=== PATIENT | male | born 1960 | race Hispanic/Latino ===

== ENCOUNTER 2020-11-16 08:35 | Inpatient (IN) | payer BC ==
[2020-11-16 12:44] LABS: #Basophils 0.1 thou/uL (0.0-0.2); #Eosinphils 0.3 thou/uL (0.0-0.7); #Lymphocytes 1.7 thou/uL (1.20-3.40); #Monocytes 0.4 thou/uL (0.11-0.59); #Neutrophils 4.3 thou/uL (1.40-6.50); %Basophils 0.9 % (0.0-1.0); %Lymphocytes 24.7 % (21.0-51.0); %Monocytes 6.1 % (0.0-10.0); %Neutrophils 63.4 % (42.0-75.0); Hemoglobin 9.6 g/dL (14.0-18.0); Mean Corpuscular HGB CONC 33.1 g/dL (32.0-36.0); Mean Corpuscular Hemoglobin 28.2 pg (27.0-31.0); Mean Corpuscular Volume 85.2 fL (78.0-98.0); Mean Platelet Volume 8.5 fL (7.4-10.4); Platelet Count 214 thou/uL (130-400); RBC Distribution Width 12.3 % (11.5-14.5); Red Blood Cell (RBC) Count 3.41 mill/uL (4.70-6.10); White Blood Cell (WBC) Count 6.8 thou/uL (4.8-10.8)
[2020-11-16 13:15] LABS: ALT (SGPT) 9 U/L (8-55); AST (SGOT) 11 U/L (5-34); Albumin 3.3 g/dL (3.5-5.0); Anion Gap 15 mmol/L (10-20); BUN (Urea Nitrogen) 81 mg/dL (8.4-25.7); Bilirubin, Total 0.4 mg/dL (0.2-1.2); Calc. Creatinine Clearance 0 mL/min (70-130); Calcium 7.5 mg/dL (7.8-10.44); Carbon Dioxide 18 mmol/L (22-29); Globulin 3.2 g/dL (2.4-3.5); Glucose 87 mg/dL (70-105); Protein, Total 6.5 g/dL (6.0-8.3)
[2020-11-16] MEDS ORDERED: hydrALAZINE 20 MG/ML VIAL ONE (13:17)
[2020-11-16 13:18] LABS: Alkaline Phosphatase 71 U/L (40-110)
[2020-11-16 14:04] LABS: Chloride 111 mmol/L (98-107); Potassium 5.4 mmol/L (3.5-5.1); Sodium 139 mmol/L (136-145)
[2020-11-16] MEDS ORDERED: Acetaminophen 650 MG Suppository PR PRN (14:04)
[2020-11-16] MEDS ORDERED: hydrALAZINE 20 MG/ML VIAL SLOW IVP PRN (14:21)
[2020-11-16] MEDS ORDERED: HumaLOG 300 UNITS/3 ML VIAL SC PRN ×2 (14:24)
[2020-11-16] MEDS ORDERED: Dextrose 50% Abboject 50 ML SYRINGE SLOW IVP PRN (14:24)
[2020-11-16] MEDS ORDERED: Dextrose 5% in Water 1,000 ML IV PRN (14:24)
[2020-11-16] MEDS ORDERED: Amlodipine 5 MG TAB PO SCH (14:30)
[2020-11-16 16:00] LABS: Troponin I 0.048 ng/mL (< 0.028)
[2020-11-16] MEDS ORDERED: CEFAZOLIN 2 GM in Premix Bag 1 BAG IVPB SCH (16:00)
[2020-11-16] MEDS ORDERED: CEFAZOLIN 1 GM in Sodium Chloride 0.9% 100 ML IVPB SCH (16:00)
[2020-11-16 16:01] VITALS: BMI 35.3
[2020-11-16 16:03] LABS: Anion Gap 16 mmol/L (10-20); BUN (Urea Nitrogen) 81 mg/dL (8.4-25.7); Calc. Creatinine Clearance 11 mL/min (70-130); Calcium 7.7 mg/dL (7.8-10.44); Carbon Dioxide 19 mmol/L (22-29); Chloride 110 mmol/L (98-107); Glucose 152 mg/dL (70-105); Potassium 4.8 mmol/L (3.5-5.1); Sodium 140 mmol/L (136-145)
[2020-11-16 20:08] LABS: SARS-CoV-2 PCR by NAA Not Detected (NotDetected)
[2020-11-16] MEDS ORDERED: Heparin 5,000 UNITS/ML VIAL SC SCH (21:00)
[2020-11-16 23:32] LABS: Anion Gap 16 mmol/L (10-20); BUN (Urea Nitrogen) 80 mg/dL (8.4-25.7); Calc. Creatinine Clearance 12 mL/min (70-130); Calcium 7.4 mg/dL (7.8-10.44); Carbon Dioxide 19 mmol/L (22-29); Chloride 110 mmol/L (98-107); Glucose 133 mg/dL (70-105); Potassium 4.7 mmol/L (3.5-5.1); Sodium 140 mmol/L (136-145)
[2020-11-16 23:55] LABS: CKMB 4.6 ng/mL (0-6.6)
[2020-11-17 02:49] LABS: #Basophils 0.1 thou/uL (0.0-0.2); #Eosinphils 0.3 thou/uL (0.0-0.7); #Lymphocytes 1.3 thou/uL (1.20-3.40); #Monocytes 0.4 thou/uL (0.11-0.59); #Neutrophils 4.2 thou/uL (1.40-6.50); %Eosinophils 5.3 % (0.0-10.0); %Lymphocytes 20.2 % (21.0-51.0); %Monocytes 6.7 % (0.0-10.0); %Neutrophils 66.8 % (42.0-75.0); Hemoglobin 9.5 g/dL (14.0-18.0); Mean Corpuscular HGB CONC 34.5 g/dL (32.0-36.0); Mean Corpuscular Hemoglobin 29.3 pg (27.0-31.0); Mean Platelet Volume 7.9 fL (7.4-10.4); Platelet Count 188 thou/uL (130-400); RBC Distribution Width 12.3 % (11.5-14.5); Red Blood Cell (RBC) Count 3.22 mill/uL (4.70-6.10); White Blood Cell (WBC) Count 6.3 thou/uL (4.8-10.8)
[2020-11-17 02:55] LABS: PTT 27.5 sec (22.9-36.1); Prothrombin Time 13.6 sec (12.0-14.7)
[2020-11-17 03:21] LABS: Anion Gap 16 mmol/L (10-20); BUN (Urea Nitrogen) 86 mg/dL (8.4-25.7); Calc. Creatinine Clearance 11 mL/min (70-130); Calcium 7.5 mg/dL (7.8-10.44); Carbon Dioxide 17 mmol/L (22-29); Chloride 112 mmol/L (98-107); Glucose 112 mg/dL (70-105); Potassium 4.8 mmol/L (3.5-5.1); Sodium 140 mmol/L (136-145)
[2020-11-17 03:34] LABS: CKMB 3.5 ng/mL (0-6.6)
[2020-11-17 05:10] LABS: HBSAB Concentration Less than 8.00 mIU/mL; HBSAg Index 0.21 S/CO (0-0.99); Hep B Core Total Ab Non-Reactive (NonReactive); Hep B Core Total Index 0.03 S/CO (0-0.79); Hep B Surf AB Non-Reactive (NonReactive); Hep B Surf Ag Non-Reactive S/CO (NonReactive); Hep C IgG Ab Non-Reactive (NonReactive); Hep C Index 0.11 S/CO (0-0.79)
[2020-11-17] MEDS: Metoprolol Tartrate 25 MG TAB PO SCH ×2 (06:25→20:36)
[2020-11-17] MEDS ORDERED: Ergocalciferol 1.25 MG(50,000 UNITS) CAP PO SCH (09:00)
[2020-11-17] MEDS: Ferrous Sulfate 325 MG TAB PO SCH (09:47)
[2020-11-17] MEDS: Alogliptin 6.25 MG TAB PO SCH (09:47)
[2020-11-17] MEDS: Aspirin 325 MG TAB PO SCH (09:47)
[2020-11-17] MEDS: Clopidogrel Bisulfate 75 MG TAB PO SCH (09:48)
[2020-11-17] MEDS: Calcitriol 0.25 MCG CAP PO SCH (09:48)
[2020-11-17] MEDS: Atorvastatin Calcium 40 MG TAB PO SCH (09:48)
[2020-11-17] MEDS: Lantus 1000 UNITS/10 ML VIAL SC SCH (09:48)
[2020-11-17] MEDS: hydrALAZINE 25 MG TAB PO SCH ×3 (10:01→20:36)
[2020-11-17] MEDS ORDERED: Tuberculin PPD 0.1 ML VIAL I-DERMAL SCH ×2 (10:15→10:30)
[2020-11-17] MEDS: EPOETIN ALFA-EPBX (ESRD) 10,000 UNIT/ML VIAL IVP SCH (11:43)
[2020-11-17] MEDS ORDERED: hydrALAZINE 20 MG/ML VIAL ONE (15:59)
[2020-11-17] MEDS ORDERED: Midazolam HCl 2 mg/2 ml Vial ONE (16:18)
[2020-11-17] MEDS ORDERED: Fentanyl 100 MCG/2 ML VIAL ONE ×2 (16:18→19:20)
[2020-11-17] MEDS ORDERED: Ioversol 68 % 50 ML VIAL ONE (16:28)
[2020-11-17] MEDS ORDERED: Protamine Sulfate 50 MG/5 ML VIAL ONE (16:28)
[2020-11-17] MEDS ORDERED: Bupivacaine 0.25% HCL 30 ML VIAL ONE (16:28)
[2020-11-17] MEDS ORDERED: Sodium Chloride 0.9% 40 ML ONE (16:28)
[2020-11-17] MEDS ORDERED: Heparin 5,000 UNITS/ML VIAL ONE (16:28)
[2020-11-17] MEDS ORDERED: Heparin 10,000 UNITS/ 10 ML VIAL ONE ×2 (16:28→17:42)
[2020-11-17] MEDS ORDERED: Bupivacaine PF 0.5% 30 ML VIAL ONE ×2 (16:28→17:36)
[2020-11-17] MEDS ORDERED: Lidocaine 2% PF 5 ML VIAL ONE (16:28)
[2020-11-17] MEDS ORDERED: Lidocaine 1% w/Epinephrine 1:100K 20 ML VIAL ONE ×2 (16:28→17:36)
[2020-11-17] MEDS ORDERED: Glycopyrrolate 0.2 MG/ML 5 ML SYRINGE ONE (16:54)
[2020-11-17] MEDS ORDERED: ePHEDrine Sulfate 50 MG/10 ML VIAL ONE ×2 (16:54→18:51)
[2020-11-17] MEDS ORDERED: PHENYLEPHRINE-NS 100 MCG/ML 10 ML SYRINGE ONE ×2 (16:54→18:51)
[2020-11-17] MEDS ORDERED: Lidocaine 1% PF 5 ML VIAL ONE (16:54)
[2020-11-17] MEDS ORDERED: PROPOFOL 200 MG/20 ML VIAL ONE (16:54)
[2020-11-17] MEDS ORDERED: Rocuronium Bromide 10 MG/ML (10ML VIAL) ONE (16:54)
[2020-11-17] MEDS ORDERED: Ondansetron PF 4 MG/2 ML Vial ONE (16:54)
[2020-11-17] MEDS ORDERED: Sodium Chloride 0.9% 30 ML ONE (17:07)
[2020-11-17] MEDS ORDERED: Ondansetron HCl/PF 4 MG/2 ML Vial IVP PRN (18:01)
[2020-11-17] MEDS ORDERED: Promethazine HCl 25 MG/ML VIAL SLOW IVP PRN (18:01)
[2020-11-17 19:05] LABS: HBSAg Index 0.19 S/CO (0-0.99); HIV (1/2) Antibody/Antigen Non-Reactive (NonReactive); HIV 1/2 INDEX 0.07 S/CO (<1.00); Hep B Surf Ag Non-Reactive S/CO (NonReactive); Hep C IgG Ab Non-Reactive (NonReactive)
[2020-11-17] MEDS ORDERED: Acetaminophen 500 MG TAB PO PRN (19:29)
[2020-11-17] MEDS: Acetaminophen 325 MG TAB PO PRN (20:37)
[2020-11-17] MEDS: traMADol HCl 50 MG TAB PO PRN (20:40)
[2020-11-18 07:48] LABS: Anion Gap 16 mmol/L (10-20); BUN (Urea Nitrogen) 85 mg/dL (8.4-25.7); Calc. Creatinine Clearance 11 mL/min (70-130); Calcium 7.9 mg/dL (7.8-10.44); Carbon Dioxide 18 mmol/L (22-29); Chloride 108 mmol/L (98-107); Potassium 5.5 mmol/L (3.5-5.1); Sodium 136 mmol/L (136-145)
[2020-11-18] MEDS: traMADol HCl 50 MG TAB PO PRN (07:49)
[2020-11-18] MEDS: hydrALAZINE 25 MG TAB PO SCH ×3 (07:52→20:13)
[2020-11-18] MEDS: Metoprolol Tartrate 25 MG TAB PO SCH ×2 (07:52→20:14)
[2020-11-18 07:59] LABS: Glucose 156 mg/dL (70-105)
[2020-11-18 08:03] LABS: #Lymphocytes 1.2 thou/uL (1.20-3.40); #Monocytes 0.7 thou/uL (0.11-0.59); #Neutrophils 8.7 thou/uL (1.40-6.50); %Basophils 0.2 % (0.0-1.0); %Eosinophils 0.2 % (0.0-10.0); %Lymphocytes 11.4 % (21.0-51.0); %Monocytes 6.6 % (0.0-10.0); %Neutrophils 81.6 % (42.0-75.0); Hemoglobin 9.6 g/dL (14.0-18.0); Mean Corpuscular HGB CONC 33.5 g/dL (32.0-36.0); Mean Corpuscular Hemoglobin 28.9 pg (27.0-31.0); Mean Corpuscular Volume 86.4 fL (78.0-98.0); Platelet Count 219 thou/uL (130-400); RBC Distribution Width 12.5 % (11.5-14.5); Red Blood Cell (RBC) Count 3.33 mill/uL (4.70-6.10); White Blood Cell (WBC) Count 10.7 thou/uL (4.8-10.8)
[2020-11-18] MEDS ORDERED: Heparin 10,000 UNITS/ 10 ML VIAL ONE (11:14)
[2020-11-18] MEDS: Lantus 1000 UNITS/10 ML VIAL SC SCH (12:51)
[2020-11-18] MEDS: Aspirin 325 MG TAB PO SCH (12:51)
[2020-11-18] MEDS: Clopidogrel Bisulfate 75 MG TAB PO SCH (12:51)
[2020-11-18] MEDS: Ferrous Sulfate 325 MG TAB PO SCH (12:51)
[2020-11-18] MEDS: Atorvastatin Calcium 40 MG TAB PO SCH (12:51)
[2020-11-18] MEDS: Alogliptin 6.25 MG TAB PO SCH (12:51)
[2020-11-18] MEDS: Polyethylene Glycol 3350 17 GM Packet PO PRN (13:36)
[2020-11-18 15:06] LABS: Bacteria/HPF None Seen HPF (None Seen); Bilirubin Negative (Negative); Blood, Urine Trace (Negative); Clarity Clear (Clear); Glucose, Urine (Dipstick) 150 mg/dL (Negative); Ketone, Urine Negative (Negative); Leukocyte Negative Leu/uL (Negative); Nitrite Negative (Negative); Protein, Urine (Dipstick) 600 mg/dL (Neg-Trace); RBC/HPF 0-3 HPF (0-3); Specific Gravity, Urine 1.017 (1.002-1.036); Squamous Epithelial 0-3 HPF (0-3); Urobilinogen Normal mg/dL (Less than 2); WBC/HPF 0-3 HPF (0-3)
[2020-11-19 06:12] LABS: #Basophils 0.1 thou/uL (0.0-0.2); #Eosinphils 0.2 thou/uL (0.0-0.7); #Lymphocytes 1.6 thou/uL (1.20-3.40); #Monocytes 0.7 thou/uL (0.11-0.59); #Neutrophils 4.8 thou/uL (1.40-6.50); %Basophils 1.5 % (0.0-1.0); %Eosinophils 3.3 % (0.0-10.0); %Lymphocytes 21.6 % (21.0-51.0); %Monocytes 9.7 % (0.0-10.0); %Neutrophils 63.8 % (42.0-75.0); Hemoglobin 8.6 g/dL (14.0-18.0); Mean Corpuscular HGB CONC 32.5 g/dL (32.0-36.0); Mean Corpuscular Volume 86.3 fL (78.0-98.0); Mean Platelet Volume 8.5 fL (7.4-10.4); Platelet Count 180 thou/uL (130-400); RBC Distribution Width 12.4 % (11.5-14.5); Red Blood Cell (RBC) Count 3.07 mill/uL (4.70-6.10); White Blood Cell (WBC) Count 7.5 thou/uL (4.8-10.8)
[2020-11-19 06:28] LABS: Anion Gap 14 mmol/L (10-20); BUN (Urea Nitrogen) 65 mg/dL (8.4-25.7); Calc. Creatinine Clearance 12 mL/min (70-130); Calcium 7.5 mg/dL (7.8-10.44); Carbon Dioxide 23 mmol/L (22-29); Chloride 105 mmol/L (98-107); Glucose 117 mg/dL (70-105); Potassium 5.1 mmol/L (3.5-5.1); Sodium 137 mmol/L (136-145)
[2020-11-19] MEDS ORDERED: READ PPD TEST SITE PO SCH (11:00)
[2020-11-19] MEDS: Lantus 1000 UNITS/10 ML VIAL SC SCH (11:10)
[2020-11-19] MEDS ORDERED: Heparin 10,000 UNITS/ 10 ML VIAL ONE (12:26)
[2020-11-19] MEDS: Ferrous Sulfate 325 MG TAB PO SCH (12:46)
[2020-11-19] MEDS: Atorvastatin Calcium 40 MG TAB PO SCH (12:46)
[2020-11-19] MEDS: Aspirin 325 MG TAB PO SCH (12:46)
[2020-11-19] MEDS: Alogliptin 6.25 MG TAB PO SCH (12:46)
[2020-11-19] MEDS: Calcitriol 0.25 MCG CAP PO SCH (12:47)
[2020-11-19] MEDS: hydrALAZINE 25 MG TAB PO SCH ×3 (12:47→20:48)
[2020-11-19] MEDS: Clopidogrel Bisulfate 75 MG TAB PO SCH (12:47)
[2020-11-19] MEDS: Metoprolol Tartrate 25 MG TAB PO SCH ×2 (12:47→20:47)
[2020-11-19] MEDS: EPOETIN ALFA-EPBX (ESRD) 10,000 UNIT/ML VIAL IVP SCH (12:48)
[2020-11-20 06:43] LABS: Anion Gap 15 mmol/L (10-20); BUN (Urea Nitrogen) 48 mg/dL (8.4-25.7); Calc. Creatinine Clearance 14 mL/min (70-130); Calcium 7.6 mg/dL (7.8-10.44); Carbon Dioxide 26 mmol/L (22-29); Chloride 102 mmol/L (98-107); Glucose 122 mg/dL (70-105); Potassium 4.6 mmol/L (3.5-5.1); Sodium 138 mmol/L (136-145)
[2020-11-20] MEDS: Alogliptin 6.25 MG TAB PO SCH (08:58)
[2020-11-20] MEDS: Aspirin 325 MG TAB PO SCH (08:58)
[2020-11-20] MEDS: Metoprolol Tartrate 25 MG TAB PO SCH ×2 (08:58→20:41)
[2020-11-20] MEDS: Clopidogrel Bisulfate 75 MG TAB PO SCH (08:58)
[2020-11-20] MEDS: hydrALAZINE 25 MG TAB PO SCH ×3 (08:58→20:41)
[2020-11-20] MEDS: Atorvastatin Calcium 40 MG TAB PO SCH (08:59)
[2020-11-20] MEDS: Ferrous Sulfate 325 MG TAB PO SCH (08:59)
[2020-11-20] MEDS: Lantus 1000 UNITS/10 ML VIAL SC SCH (09:01)
[2020-11-21] MEDS: traMADol HCl 50 MG TAB PO PRN (05:40)
[2020-11-21 06:06] LABS: Anion Gap 15 mmol/L (10-20); BUN (Urea Nitrogen) 63 mg/dL (8.4-25.7); Calc. Creatinine Clearance 12 mL/min (70-130); Calcium 7.8 mg/dL (7.8-10.44); Carbon Dioxide 25 mmol/L (22-29); Chloride 100 mmol/L (98-107); Glucose 116 mg/dL (70-105); Potassium 4.6 mmol/L (3.5-5.1); Sodium 135 mmol/L (136-145)
[2020-11-21] MEDS: Alogliptin 6.25 MG TAB PO SCH (08:10)
[2020-11-21] MEDS: Ferrous Sulfate 325 MG TAB PO SCH (08:10)
[2020-11-21] MEDS: hydrALAZINE 25 MG TAB PO SCH ×3 (08:10→20:44)
[2020-11-21] MEDS: Clopidogrel Bisulfate 75 MG TAB PO SCH (08:10)
[2020-11-21] MEDS: Aspirin 325 MG TAB PO SCH (08:11)
[2020-11-21] MEDS: Metoprolol Tartrate 25 MG TAB PO SCH ×2 (08:11→20:44)
[2020-11-21] MEDS: Atorvastatin Calcium 40 MG TAB PO SCH (08:11)
[2020-11-21] MEDS: Lantus 1000 UNITS/10 ML VIAL SC SCH (08:16)
[2020-11-21] MEDS ORDERED: Heparin 10,000 UNITS/ 10 ML VIAL ONE (08:55)
[2020-11-21] MEDS: Acetaminophen 325 MG TAB PO PRN (20:46)
[2020-11-21] MEDS: Polyethylene Glycol 3350 17 GM Packet PO PRN (20:54)
[2020-11-22 05:58] LABS: Anion Gap 13 mmol/L (10-20); BUN (Urea Nitrogen) 52 mg/dL (8.4-25.7); Calc. Creatinine Clearance 15 mL/min (70-130); Calcium 7.8 mg/dL (7.8-10.44); Carbon Dioxide 26 mmol/L (22-29); Chloride 98 mmol/L (98-107); Glucose 98 mg/dL (70-105); Potassium 4.4 mmol/L (3.5-5.1); Sodium 133 mmol/L (136-145)
[2020-11-22] MEDS: Aspirin 325 MG TAB PO SCH (08:30)
[2020-11-22] MEDS: Alogliptin 6.25 MG TAB PO SCH (08:30)
[2020-11-22] MEDS: Atorvastatin Calcium 40 MG TAB PO SCH (08:31)
[2020-11-22] MEDS: Lantus 1000 UNITS/10 ML VIAL SC SCH (08:37)
[2020-11-22 12:11] VITALS: BP 156/68; TEMP 98.3
[2020-11-22] MEDS: hydrALAZINE 25 MG TAB PO SCH (12:49)
[2020-11-22] MEDS: Metoprolol Tartrate 25 MG TAB PO SCH (12:50)
[2020-11-22] MEDS: Clopidogrel Bisulfate 75 MG TAB PO SCH (12:50)
[2020-11-22] MEDS: EPOETIN ALFA-EPBX (ESRD) 10,000 UNIT/ML VIAL IVP SCH (12:50)
== END 2020-11-22 16:57 | disposition home or self-care (01) | DRG 673 ==
LOC: ERS 08:35 → ERHOLD 11:45 → T4-A 15:39
PROVIDERS: ADMIT Internal Medicine; ATTEND Internal Medicine
PROC: 0WHG43Z Insertion of Infusion Device into Peritoneal Cavity, Percutaneous Endoscopic Approach (ICD-10-PCS; 2020-11-17)
PROC: 031B09F Bypass Right Radial Artery to Lower Arm Vein with Autologous Venous Tissue, Open Approach (ICD-10-PCS; 2020-11-17)
PROC: 0JH63XZ Insertion of Tunneled Vascular Access Device into Chest Subcutaneous Tissue and Fascia, Percutaneous Approach (ICD-10-PCS; 2020-11-17)
PROC: 02HV33Z Insertion of Infusion Device into Superior Vena Cava, Percutaneous Approach (ICD-10-PCS; 2020-11-17)
PROC: B5181ZA Fluoroscopy of Superior Vena Cava using Low Osmolar Contrast, Guidance (ICD-10-PCS; 2020-11-17)
PROC: B548ZZA Ultrasonography of Superior Vena Cava, Guidance (ICD-10-PCS; 2020-11-17)
PROC: 5A1D70Z Performance of Urinary Filtration, Intermittent, Less than 6 Hours Per Day (ICD-10-PCS; 2020-11-19)
PROC: 3E02340 Introduction of Influenza Vaccine into Muscle, Percutaneous Approach (ICD-10-PCS; principal; 2020-11-20)
DX: I13.11 Hypertensive heart and chronic kidney disease without heart failure, with stage 5 chronic kidney disease, or end stage renal disease (principal); N18.6 End stage renal disease; E87.2 Acidosis; E87.1 Hypo-osmolality and hyponatremia; Z20.822 Contact with and (suspected) exposure to COVID-19; Z23 Encounter for immunization; I25.10 Atherosclerotic heart disease of native coronary artery without angina pectoris; E11.22 Type 2 diabetes mellitus with diabetic chronic kidney disease; E78.5 Hyperlipidemia, unspecified; E78.00 Pure hypercholesterolemia, unspecified; I16.0 Hypertensive urgency; E87.5 Hyperkalemia; D63.1 Anemia in chronic kidney disease; Z95.1 Presence of aortocoronary bypass graft; Z79.01 Long term (current) use of anticoagulants; Z79.82 Long term (current) use of aspirin; Z79.4 Long term (current) use of insulin; Z79.899 Other long term (current) drug therapy; Z87.891 Personal history of nicotine dependence
CPT/HCPCS: 36415; 36416; 71045; 74018; 76770; 80048; 80053; 81001; 82553; 84484; 85025; 85610; 85730; 86580; 86704; 86706; 86803; 87086; 87340; 87389; 87635; 90935; 93005; 93010; 93970; 96374; C1751; C1752; G0257; J0360; J0690; J1644; J2001; J2250; J2405; J2704; J2720; J3010; Q5105; Q9967; S0020; U0003; U0005

== ENCOUNTER 2020-11-24 09:14 | Outpatient (CLI) | payer BC | END 2020-11-24 09:15 | disposition home or self-care (01) | LOC: BICRAD 09:14 | PROVIDERS: ATTEND Internal Medicine Nephrology | DX: Z11.1 Encounter for screening for respiratory tuberculosis (principal) | CPT/HCPCS: 71046 ==

== ENCOUNTER 2021-01-22 00:17 | Emergency (ER) | payer OTHER, BC ==
[2021-01-22] MEDS ORDERED: Acetaminophen 500 MG TAB ONE (02:29)
== END 2021-01-22 04:30 | disposition home or self-care (01) ==
LOC: ERS 00:17
DX: S60.222A Contusion of left hand, initial encounter (principal); S70.12XA Contusion of left thigh, initial encounter; I12.9 Hypertensive chronic kidney disease with stage 1 through stage 4 chronic kidney disease, or unspecified chronic kidney disease; N18.9 Chronic kidney disease, unspecified; E11.22 Type 2 diabetes mellitus with diabetic chronic kidney disease; I25.10 Atherosclerotic heart disease of native coronary artery without angina pectoris; E78.5 Hyperlipidemia, unspecified; Z79.4 Long term (current) use of insulin; Z99.2 Dependence on renal dialysis; V49.9XXA Car occupant (driver) (passenger) injured in unspecified traffic accident, initial encounter
CPT/HCPCS: 70450

== ENCOUNTER 2021-04-25 14:02 | Outpatient (CLI) | payer BC | END 2021-04-25 14:03 | disposition home or self-care (01) | LOC: BICRAD 14:02 | PROVIDERS: ATTEND Internal Medicine Nephrology | DX: T85.691S Other mechanical complication of intraperitoneal dialysis catheter, sequela (principal) | CPT/HCPCS: 74019 ==

== ENCOUNTER 2021-10-06 09:56 | Outpatient (CLI) | payer BC | END 2021-10-06 09:57 | disposition home or self-care (01) | LOC: RAD 09:56 → EDBD 09:56 → RAD 09:57 | PROVIDERS: ATTEND Internal Medicine Nephrology | DX: T85.691S Other mechanical complication of intraperitoneal dialysis catheter, sequela (principal) | CPT/HCPCS: 74019 ==

== ENCOUNTER 2022-01-08 19:34 | Emergency (ER) | payer BC ==
[2022-01-08] MEDS ORDERED: Fluorescein Opthalmic Strip ONE (20:12)
[2022-01-08] MEDS ORDERED: Proparacaine 0.5% Opth 15 ML BOT ONE (20:12)
== END 2022-01-08 20:45 | disposition home or self-care (01) ==
LOC: ERS 19:34
DX: S05.01XA Injury of conjunctiva and corneal abrasion without foreign body, right eye, initial encounter (principal); E78.5 Hyperlipidemia, unspecified; E11.22 Type 2 diabetes mellitus with diabetic chronic kidney disease; I12.9 Hypertensive chronic kidney disease with stage 1 through stage 4 chronic kidney disease, or unspecified chronic kidney disease; N18.9 Chronic kidney disease, unspecified; Z79.899 Other long term (current) drug therapy; X58.XXXA Exposure to other specified factors, initial encounter
CPT/HCPCS: 99283

== ENCOUNTER 2022-07-20 12:46 | Outpatient (CLI) | payer BC | END 2022-07-20 12:47 | disposition home or self-care (01) | LOC: SCSMRI 12:46 | PROVIDERS: ATTEND Specialist | DX: M47.22 Other spondylosis with radiculopathy, cervical region (principal) | CPT/HCPCS: 72141; 82565 ==

== ENCOUNTER → 2022-07-20 | Day surgery (SDC) | payer BC ==
[2022-07-19 08:59] VITALS: BMI 28.8
[~2022-07-20] MED LIST: Heparin 1,000 UNITS/ML VIAL ONE
[2022-07-20 08:20] VITALS: BP 193/63; TEMP 97.8
== END | disposition short-term general hospital (02) ==
LOC: SPEC 07:34
PROVIDERS: ATTEND Specialist
PROC: 0HJPXZZ Inspection of Skin, External Approach (ICD-10-PCS; principal; 2022-07-20)
DX: T82.590A Other mechanical complication of surgically created arteriovenous fistula, initial encounter (principal); I12.0 Hypertensive chronic kidney disease with stage 5 chronic kidney disease or end stage renal disease; E11.22 Type 2 diabetes mellitus with diabetic chronic kidney disease; N18.6 End stage renal disease; E78.00 Pure hypercholesterolemia, unspecified; M54.12 Radiculopathy, cervical region; F17.200 Nicotine dependence, unspecified, uncomplicated; Z53.8 Procedure and treatment not carried out for other reasons; Z79.02 Long term (current) use of antithrombotics/antiplatelets; Z79.4 Long term (current) use of insulin; Z79.82 Long term (current) use of aspirin; Z79.899 Other long term (current) drug therapy; Z95.5 Presence of coronary angioplasty implant and graft; Z99.2 Dependence on renal dialysis; Y81.3 Surgical instruments, materials and general- and plastic-surgery devices (including sutures) associated with adverse incidents
CPT/HCPCS: 36901; 72141; 82565; J1644

== ENCOUNTER 2022-07-25 09:23 | Day surgery (SDC) | payer BC ==
[2022-07-24 14:53] VITALS: BMI 33.5
[2022-07-25 10:42] LABS: #Basophils 0.1 thou/uL (0.0-0.2); #Eosinphils 0.4 thou/uL (0.0-0.7); #Lymphocytes 1.5 thou/uL (1.20-3.40); #Monocytes 0.6 thou/uL (0.11-0.59); #Neutrophils 5.4 thou/uL (1.40-6.50); %Basophils 0.6 % (0.0-1.0); %Eosinophils 5.1 % (0.0-10.0); %Monocytes 7.2 % (0.0-10.0); %Neutrophils 68.2 % (42.0-75.0); Hemoglobin 12.6 g/dL (14.0-18.0); Mean Corpuscular HGB CONC 32.3 g/dL (32.0-36.0); Mean Corpuscular Hemoglobin 29.3 pg (27.0-31.0); Mean Platelet Volume 7.5 fL (7.4-10.4); Platelet Count 201 10x3/uL (130-400); RBC Distribution Width 13.4 % (11.5-14.5); Red Blood Cell (RBC) Count 4.29 mill/uL (4.70-6.10)
[2022-07-25 11:03] LABS: Anion Gap 20 mmol/L (10-20); BUN (Urea Nitrogen) 75 mg/dL (8.4-25.7); Calc. Creatinine Clearance 5 mL/min (70-130); Calcium 9.7 mg/dL (7.8-10.44); Carbon Dioxide 20 mmol/L (23-31); Chloride 105 mmol/L (98-107); Estimated GFR 3; Glucose 137 mg/dL (80-115); Potassium 4.9 mmol/L (3.5-5.1); Sodium 140 mmol/L (136-145)
[2022-07-25] MEDS ORDERED: Heparin 5,000 UNITS/ML VIAL ONE (12:28)
[2022-07-25] MEDS ORDERED: Bupivacaine/Epinephrine 0.25% 30 ML VIAL ONE (12:28)
[2022-07-25] MEDS ORDERED: Protamine Sulfate 50 MG/5 ML VIAL ONE (12:28)
[2022-07-25] MEDS ORDERED: Lidocaine 1% PF 5 ML VIAL ONE ×2 (12:28→12:58)
[2022-07-25] MEDS ORDERED: Fentanyl 250 MCG/5 ML VIAL ONE (12:30)
[2022-07-25] MEDS ORDERED: Sodium Chloride 0.9% 100 ML ONE (12:50)
[2022-07-25] MEDS ORDERED: CEFAZOLIN 2 GM VIAL ONE (12:50)
[2022-07-25] MEDS ORDERED: Dexamethasone 20 MG/5 ML VIAL ONE (12:58)
[2022-07-25] MEDS ORDERED: Ondansetron PF 4 MG/2 ML Vial ONE (12:58)
[2022-07-25] MEDS ORDERED: PROPOFOL 200 MG/20 ML VIAL ONE (12:58)
[2022-07-25] MEDS ORDERED: ePHEDrine 50 MG/ML VIAL ONE (12:58)
[2022-07-25] MEDS ORDERED: Fentanyl 100 MCG/2 ML VIAL ONE ×2 (13:55→14:20)
[2022-07-25] MEDS ORDERED: hydrALAZINE 20 MG/ML VIAL ONE (14:01)
[2022-07-25] MEDS ORDERED: HYDROcodone/Acetaminophen 5/325 mg Tablet ONE (15:29)
== END 2022-07-25 16:19 | disposition home or self-care (01) ==
LOC: SDC 09:23
PROVIDERS: ATTEND Specialist
PROC: 03LB0ZZ Occlusion of Right Radial Artery, Open Approach (ICD-10-PCS; principal; 2022-07-25)
DX: T82.590A Other mechanical complication of surgically created arteriovenous fistula, initial encounter (principal); I12.0 Hypertensive chronic kidney disease with stage 5 chronic kidney disease or end stage renal disease; E11.22 Type 2 diabetes mellitus with diabetic chronic kidney disease; N18.6 End stage renal disease; I87.309 Chronic venous hypertension (idiopathic) without complications of unspecified lower extremity; E78.00 Pure hypercholesterolemia, unspecified; M54.12 Radiculopathy, cervical region; F17.200 Nicotine dependence, unspecified, uncomplicated; Z79.02 Long term (current) use of antithrombotics/antiplatelets; Z79.4 Long term (current) use of insulin; Z79.82 Long term (current) use of aspirin; Z79.84 Long term (current) use of oral hypoglycemic drugs; Z79.899 Other long term (current) drug therapy; Z95.5 Presence of coronary angioplasty implant and graft; Z99.2 Dependence on renal dialysis; Y81.3 Surgical instruments, materials and general- and plastic-surgery devices (including sutures) associated with adverse incidents
CPT/HCPCS: 36416; 80048; 85025; 93005; 93010; C1776; J0360; J1100; J1644; J2405; J2704; J2720; J3010; J3490

== ENCOUNTER 2022-09-25 11:59 | Emergency (ER) | payer BC ==
[2022-09-25 12:24] LABS: #Eosinphils 0.3 thou/uL (0.0-0.7); #Lymphocytes 1.3 thou/uL (1.20-3.40); #Monocytes 0.7 thou/uL (0.11-0.59); #Neutrophils 4.7 thou/uL (1.40-6.50); %Basophils 0.4 % (0.0-1.0); %Lymphocytes 18.4 % (21.0-51.0); %Monocytes 9.4 % (0.0-10.0); %Neutrophils 67.8 % (42.0-75.0); Hemoglobin 10.6 g/dL (14.0-18.0); Mean Corpuscular HGB CONC 33.2 g/dL (32.0-36.0); Mean Corpuscular Hemoglobin 29.3 pg (27.0-31.0); Mean Corpuscular Volume 88.2 fl (78.0-98.0); Mean Platelet Volume 7.4 fL (7.4-10.4); Platelet Count 174 10x3/uL (130-400); RBC Distribution Width 12.9 % (11.5-14.5); Red Blood Cell (RBC) Count 3.62 mill/uL (4.70-6.10)
[2022-09-25 12:42] LABS: PTT 29.3 sec (22.9-36.1); Prothrombin Time 13.3 sec (12.0-14.7)
[2022-09-25 12:56] LABS: ALT (SGPT) 7 U/L (8-55); AST (SGOT) 10 U/L (5-34); Alkaline Phosphatase 61 U/L (40-110); Anion Gap 19 mmol/L (10-20); BUN (Urea Nitrogen) 91 mg/dL (8.4-25.7); Bilirubin, Total 0.6 mg/dL (0.2-1.2); Calc. Creatinine Clearance 0 mL/min (70-130); Carbon Dioxide 21 mmol/L (23-31); Chloride 98 mmol/L (98-107); Estimated GFR 3; Globulin 2.5 g/dL (2.4-3.5); Glucose 133 mg/dL (80-115); Potassium 4.8 mmol/L (3.5-5.1); Protein, Total 5.5 g/dL (5.8-8.1); Sodium 133 mmol/L (136-145)
[2022-09-25 13:21] LABS: CKMB 3.2 ng/mL (0-6.6)
== END 2022-09-25 17:03 | disposition short-term general hospital (02) ==
LOC: ERS 11:59
DX: R07.9 Chest pain, unspecified (principal); R55 Syncope and collapse; E11.9 Type 2 diabetes mellitus without complications; E78.5 Hyperlipidemia, unspecified; I10 Essential (primary) hypertension; Z79.4 Long term (current) use of insulin; Z79.899 Other long term (current) drug therapy
CPT/HCPCS: 71045; 80053; 82553; 83880; 84484; 85025; 85610; 85730; 93005